=== PATIENT | female | born 1940 | race Caucasian/White ===

== ENCOUNTER 2017-09-23 14:55 | Emergency (ER) | payer MEDICARE, OTHER ==
[2017-09-23] MEDS: ACETAMINOPHEN 325 MG TAB PO (16:28)
== END 2017-09-23 17:17 | disposition home or self-care (01) ==
LOC: FTE 14:55
DX: J06.9 Acute upper respiratory infection, unspecified (principal); I10 Essential (primary) hypertension
CPT/HCPCS: 99283

== ENCOUNTER 2019-04-18 06:49 | Day surgery (SDC) | payer MEDICARE, OTHER ==
[2019-04-18] MEDS: LACTATED RINGER'S 1,000 ML IV (08:04)
[2019-04-18] MEDS ORDERED: FENTAnyl 50 MCG/ML VIAL (09:30)
[2019-04-18] MEDS ORDERED: PROPOFOL 20 ML (09:30)
[2019-04-18] MEDS ORDERED: CLINDAMYCIN 900 MG/D5W (PMX) 50 ML IVPB (09:30)
[2019-04-18] MEDS ORDERED: LIDOCAINE 1% (MPF) 30 ML INJ (09:47)
[2019-04-18] MEDS ORDERED: DEXAMETHASONE 4 MG/ML 1 ML INJ (09:47)
[2019-04-18] MEDS ORDERED: POLYMYXIN/BACITRACIN 1L IRRIG (09:47)
[2019-04-18] MEDS ORDERED: DEXAMETHASONE 4 MG/ML 5 ML INJ (09:54)
[2019-04-18] MEDS ORDERED: ONDANSETRON 4 MG INJ (09:54)
[2019-04-18] MEDS ORDERED: POVIDONE IODINE 10% 28.4 GM OINT (10:04)
[2019-04-18] MEDS ORDERED: KETOROLAC 30 MG INJ (10:23)
[2019-04-18] MEDS ORDERED: hydrALAzine 20 MG INJ IV (10:30)
[2019-04-18] MEDS ORDERED: OXYCODONE/ACETAMINOPHEN (5/325) TAB PO ×2 (10:30)
[2019-04-18] MEDS ORDERED: FENTAnyl 50 MCG/ML VIAL IV ×2 (10:30)
[2019-04-18] MEDS ORDERED: ONDANSETRON 4 MG INJ IV (10:30)
[2019-04-18] MEDS ORDERED: MEPERIDINE 25 MG INJ IV (10:30)
[2019-04-18] MEDS ORDERED: LABETALOL HCL 20MG INJ IV (10:30)
[2019-04-18] MEDS: BUPIVACAINE 0.5% (SDV) 30 ML INJ (10:33)
[2019-04-18] MEDS: FENTAnyl 50 MCG/ML VIAL IV (11:46)
== END 2019-04-18 13:30 | disposition home or self-care (01) ==
LOC: SDS 06:49
DX: M20.12 Hallux valgus (acquired), left foot (principal); M21.612 Bunion of left foot; I10 Essential (primary) hypertension
CPT/HCPCS: 28299; 71045; 88304